=== PATIENT | female | born 1935 | race Caucasian/White ===

== ENCOUNTER 2024-07-23 17:05 | Inpatient (IN) | payer OTHER, MEDICAID ==
[~2024-07-23] VITALS: Ht 147.3 cm; Wt 108.4 kg
[2024-07-23 17:22] VITALS: BP_SYST 113; PULSE 90; RESP 18; TEMP 98.3; O2SAT 98
[2024-07-23 20:37] LABS: ANION GAP 6 (5-15); CALCIUM 9.5 mg/dL (8.4-11.0); CARBON DIOXIDE 26 mmol/L (23-29); CHLORIDE 101 mmol/L (98-107); CREATININE 1.63 mg/dL (0.55-1.30); GLUCOSE 92 mg/dL (74-106); POTASSIUM 4.5 mmol/L (3.5-5.1); RED CELL DISTRIBUTION WIDTH 13.9 % (9.0-15.0); SODIUM SERUM 133 mmol/L (136-145); UREA NITROGEN, BLOOD 40 mg/dL (8-21)
[2024-07-23 20:46] LABS: HEMATOCRIT 42.1 % (36-48); HEMOGLOBIN 14.5 g/dL (12.0-16.0); MEAN CORPUSCULAR HEMOGLOBIN 33 pg (27-31); MEAN CORPUSCULAR HGB CONC 34 % (32-36); MEAN CORPUSCULAR VOLUME 96 fL (79.0-98.0); PLATELET COUNT (AUTO) 238 K/uL (130-430); RED BLOOD CELL COUNT(AUTO) 4.41 MIL/uL (4.2-6.2)
[2024-07-23 21:28] LABS: BAND % (MANUAL) 63 % (0-6); LYMPHOCYTES % (MANUAL) 3 % (20-46)
[2024-07-23 21:29] LABS: BASOPHILS % (MANUAL) 0 % (0-2); EOSINOPHILS % (MANUAL) 0 % (0-7); METAMYELOCYTES % 13 % (0-0); MONOCYTES % (MANUAL) 3 % (0-11); MYELOCYTES % 3 % (0-0); OVALOCYTES FEW; PLATELET ESTIMATE ADEQUATE (ADEQUATE); TEAR DROP CELLS FEW
[2024-07-23] MEDS: NACL 0.9% 1,000 ML IV ONE (21:41)
[2024-07-23] MEDS: KETOROLAC TROMETHAMINE 30 MG VIAL IVP ONE (21:44)
[2024-07-23] MEDS: MORPHINE 2 MG/ML INJ. SYRINGE IVP ONE (23:15)
[2024-07-24] VITALS (7 sets, daily range): BP systolic 84–130; PULSE 76–90; RESP 16–22; TEMP 96.6–97.7; O2SAT 96–100
[2024-07-24] MEDS: PIPERACILLIN/TAZO 3.375 GM in NS 50 ML IV ONE (00:45)
[2024-07-24 01:01] LABS: BILIRUBIN,URINE 1+ (NEGATIVE); BLOOD, URINE NEGATIVE (NEGATIVE); GLUCOSE,URINE NEGATIVE (NEGATIVE); KETONES,URINE TRACE (NEGATIVE); LEUKOCYTE ESTERASE ,URINE NEGATIVE (NEGATIVE); NITRITE, URINE NEGATIVE (NEGATIVE); PROTEIN URINE 1+ (NEGATIVE); UROBILINOGEN,URINE 0.2 (0.2-1.0)
[2024-07-24] MEDS ORDERED: PIPERACILLIN/TAZOBACTAM 3.375 GM/VIAL (ZOSYN) IV ONE (01:09)
[2024-07-24 01:10] LABS: CLARITY/URINE SLIGHTLY CLOUDY (CLEAR); COLOR,URINE AMBER (YELLOW)
[2024-07-24 01:11] LABS: BACTERIA,URINE FEW /HPF (None Seen); CALCIUM OXALATE CRYSTALS,UR 0-10 /HPF (None Seen); RBC,URINE 0-3 /HPF (0-3); WBC,URINE 0-3 /HPF (0-3)
[2024-07-24 01:13] LABS: HYALINE CASTS, URINE 0-10 /LPF (None Seen)
[2024-07-24] MEDS ORDERED: LEVO125T PO (01:42)
[2024-07-24] MEDS ORDERED: ALBMDI INH (01:42)
[2024-07-24] MEDS ORDERED: TEMAZEPAM 15 MG CAPSULE PO PRN (02:00)
[2024-07-24] MEDS ORDERED: TEMAZEPAM 7.5 MG CAPSULE PO PRN (02:00)
[2024-07-24] MEDS: NACL 0.9% 1,000 ML IV SCH (02:36)
[2024-07-24] MEDS ORDERED: VANCOMYCIN HCL 1000 MG/VIAL IV ONE (02:42)
[2024-07-24] MEDS: VANCOMYCIN HCL 1,000 MG in NS 250 ML IV ONE (02:43)
[2024-07-24] MEDS: PIPERACILLIN/TAZO 3.375 GM in NS 50 ML IV SCH (09:45)
[2024-07-24] MEDS ORDERED: MIDODRINE HCL 5 MG TABLET (PROAMATINE) PO PRN (11:00)
[2024-07-24] MEDS ORDERED: DOXYCYCLINE HYCLATE 100 MG TABLET PO ONE (12:30)
[2024-07-24] MEDS ORDERED: DOXYCYCLINE HYCLATE 100 MG TABLET PO SCH (12:30)
[2024-07-24] MEDS: MIDODRINE HCL 5 MG TABLET (PROAMATINE) PO PRN (12:41)
[2024-07-24] MEDS: traMADol HCL HCL 50 MG TABLET (ULTRAM) PO SCH (13:27)
[2024-07-24] MEDS: LINEZOLID 300 ML IV ONE (13:53)
[2024-07-24] MEDS: LINEZOLID 300 ML IV SCH (20:20)
[2024-07-25] VITALS (7 sets, daily range): BP systolic 89–131; PULSE 78–85; RESP 16–20; TEMP 96.1–98; O2SAT 97–100
[2024-07-25] MEDS: HYDROcodone/ACETAMIN 5-325 MG TAB (NORCO/ VICODIN) PO PRN (05:25)
[2024-07-25 06:45] LABS: ANION GAP 10 (5-15); CALCIUM 8.6 mg/dL (8.4-11.0); CARBON DIOXIDE 21 mmol/L (23-29); CHLORIDE 101 mmol/L (98-107); CREATININE 1.68 mg/dL (0.55-1.30); GLUCOSE 69 mg/dL (74-106); POTASSIUM 5.2 mmol/L (3.5-5.1); SODIUM SERUM 132 mmol/L (136-145); UREA NITROGEN, BLOOD 50 mg/dL (8-21)
[2024-07-25 07:15] LABS: EOSINOPHILS # (AUTO) 0.1 K/uL (0.0-0.4); EOSINOPHILS % (AUTO) 0.7 % (0.0-4.0); HEMATOCRIT 36.5 % (36-48); HEMOGLOBIN 11.8 g/dL (12.0-16.0); LYMPHOCYTES # (AUTO) 0.3 K/uL (1.0-5.5); LYMPHOCYTES % (AUTO) 2.2 % (20.5-51.5); MEAN CORPUSCULAR HEMOGLOBIN 31 pg (27-31); MEAN CORPUSCULAR HGB CONC 32 % (32-36); MEAN CORPUSCULAR VOLUME 97 fL (79.0-98.0); MONOCYTES # (AUTO) 0.3 K/uL (0.0-1.0); MONOCYTES % (AUTO) 1.9 % (1.7-9.3); NEUTROPHILS # (AUTO) 14.8 K/uL (1.8-7.7); NEUTROPHILS % (AUTO) 95.2 % (40.0-70.0); PLATELET COUNT (AUTO) 181 K/uL (130-430); RED BLOOD CELL COUNT(AUTO) 3.77 MIL/uL (4.2-6.2); RED CELL DISTRIBUTION WIDTH 14.1 % (9.0-15.0); WHITE BLOOD COUNT (AUTO) 15.5 K/uL (4.8-10.8)
[2024-07-25] MEDS: MENTHOL/ZINC OXIDE 113 GM OINT. TP SCH (09:59)
[2024-07-26 00:06] VITALS: BP_SYST 102; PULSE 79; RESP 20; TEMP 97.1
[2024-07-26 02:34] VITALS: BP_SYST 102; PULSE 63; RESP 18; TEMP 100; O2SAT 94
[2024-07-26 06:24] LABS: EOSINOPHILS # (AUTO) 0.2 K/uL (0.0-0.4); EOSINOPHILS % (AUTO) 1.4 % (0.0-4.0); HEMATOCRIT 34.3 % (36-48); HEMOGLOBIN 11.3 g/dL (12.0-16.0); LYMPHOCYTES # (AUTO) 0.3 K/uL (1.0-5.5); MEAN CORPUSCULAR HEMOGLOBIN 32 pg (27-31); MEAN CORPUSCULAR HGB CONC 33 % (32-36); MEAN CORPUSCULAR VOLUME 96 fL (79.0-98.0); MONOCYTES # (AUTO) 0.2 K/uL (0.0-1.0); MONOCYTES % (AUTO) 1.1 % (1.7-9.3); NEUTROPHILS # (AUTO) 16.3 K/uL (1.8-7.7); NEUTROPHILS % (AUTO) 95.5 % (40.0-70.0); PLATELET COUNT (AUTO) 172 K/uL (130-430); RED BLOOD CELL COUNT(AUTO) 3.57 MIL/uL (4.2-6.2); WHITE BLOOD COUNT (AUTO) 17.1 K/uL (4.8-10.8)
[2024-07-26 07:03] LABS: ANION GAP 10 (5-15); CALCIUM 8.4 mg/dL (8.4-11.0); CARBON DIOXIDE 22 mmol/L (23-29); CHLORIDE 97 mmol/L (98-107); CREATININE 1.46 mg/dL (0.55-1.30); SODIUM SERUM 129 mmol/L (136-145); UREA NITROGEN, BLOOD 46 mg/dL (8-21)
[2024-07-26 07:10] LABS: GLUCOSE 50 mg/dL (74-106)
[2024-07-26 08:00] VITALS: BP_SYST 88; PULSE 83; RESP 16; TEMP 98.7
[2024-07-26] MEDS: FLUCONAZOLE 200 mg/ NS 100 ML IV SCH (11:23)
[2024-07-26 12:36] VITALS: BP_SYST 97; PULSE 82; RESP 19; TEMP 97.2; O2SAT 94
[2024-07-26 13:31] LABS: BASOPHILS % (AUTO) 0.2 % (0.0-2.0); EOSINOPHILS # (AUTO) 0.2 K/uL (0.0-0.4); EOSINOPHILS % (AUTO) 1.1 % (0.0-4.0); HEMATOCRIT 35.8 % (36-48); HEMOGLOBIN 11.8 g/dL (12.0-16.0); LYMPHOCYTES # (AUTO) 0.3 K/uL (1.0-5.5); MEAN CORPUSCULAR HEMOGLOBIN 32 pg (27-31); MEAN CORPUSCULAR HGB CONC 33 % (32-36); MEAN CORPUSCULAR VOLUME 96 fL (79.0-98.0); MONOCYTES # (AUTO) 0.1 K/uL (0.0-1.0); MONOCYTES % (AUTO) 0.5 % (1.7-9.3); NEUTROPHILS # (AUTO) 15.3 K/uL (1.8-7.7); NEUTROPHILS % (AUTO) 96.2 % (40.0-70.0); PLATELET COUNT (AUTO) 159 K/uL (130-430); RED BLOOD CELL COUNT(AUTO) 3.72 MIL/uL (4.2-6.2); RED CELL DISTRIBUTION WIDTH 14.2 % (9.0-15.0); WHITE BLOOD COUNT (AUTO) 15.9 K/uL (4.8-10.8)
[2024-07-26 16:15] VITALS: BP_SYST 88; PULSE 82; RESP 21; TEMP 97.3; O2SAT 98
[2024-07-26 20:00] VITALS: BP_SYST 101; PULSE 80; RESP 19; TEMP 97.7; O2SAT 98
[2024-07-26 23:11] LABS: BILIRUBIN,URINE NEGATIVE (NEGATIVE); COLOR,URINE YELLOW (YELLOW); GLUCOSE,URINE NEGATIVE (NEGATIVE); KETONES,URINE NEGATIVE (NEGATIVE); LEUKOCYTE ESTERASE ,URINE NEGATIVE (NEGATIVE); NITRITE, URINE NEGATIVE (NEGATIVE); PROTEIN URINE TRACE (NEGATIVE); UROBILINOGEN,URINE 0.2 (0.2-1.0)
[2024-07-26 23:42] LABS: BLOOD, URINE 1+ (NEGATIVE); CLARITY/URINE SLIGHTLY CLOUDY (CLEAR)
[2024-07-26 23:59] LABS: BACTERIA,URINE None Seen /HPF (None Seen); WBC,URINE 0-3 /HPF (0-3)
[2024-07-27] VITALS (7 sets, daily range): BP systolic 100–116; PULSE 85–88; RESP 18–22; TEMP 97.4–98; O2SAT 96–98
[2024-07-27] LABS: URINE AMORPHOUS URATE 1+ /HPF (None Seen)
[2024-07-27] MEDS: DOXYCYCLINE HYCLATE 100 MG TABLET PO SCH (09:31)
[2024-07-27] MEDS: IPRATROPIUM/ALBUTEROL SULFATE 3 ML AMPUL.NEB (DUONEB) INH ONE (10:10)
[2024-07-27] MEDS: IPRATROPIUM/ALBUTEROL SULFATE 3 ML AMPUL.NEB (DUONEB) ONE (10:15)
[2024-07-27 10:40] LABS: URINE SODIUM, RANDOM 4 mmol/L (40-220)
[2024-07-27 15:53] LABS: HEMATOCRIT 33.4 % (36-48); HEMOGLOBIN 11.2 g/dL (12.0-16.0); MEAN CORPUSCULAR HEMOGLOBIN 33 pg (27-31); MEAN CORPUSCULAR HGB CONC 33 % (32-36); MEAN CORPUSCULAR VOLUME 98 fL (79.0-98.0); PLATELET COUNT (AUTO) 149 K/uL (130-430); RED CELL DISTRIBUTION WIDTH 14.9 % (9.0-15.0); WHITE BLOOD COUNT (AUTO) 16.9 K/uL (4.8-10.8)
[2024-07-27 16:20] LABS: ALANINE AMINOTRANSFERASE 30 U/L (12-78); ALBUMIN 1.2 g/dL (3.4-4.8); ANION GAP 10 (5-15); ASPARTATE AMINOTRANSFERASE 52 U/L (10-37); CALCIUM 7.8 mg/dL (8.4-11.0); CARBON DIOXIDE 19 mmol/L (23-29); CHLORIDE 98 mmol/L (98-107); CREATININE 1.37 mg/dL (0.55-1.30); GLUCOSE 83 mg/dL (74-106); POTASSIUM 5.2 mmol/L (3.5-5.1); SODIUM SERUM 127 mmol/L (136-145); TOTAL BILIRUBIN 0.6 mg/dL (0.0-1.0); UREA NITROGEN, BLOOD 45 mg/dL (8-21)
[2024-07-27 16:23] LABS: BAND % (MANUAL) 9 % (0-6); BASOPHILS % (MANUAL) 0 % (0-2); EOSINOPHILS % (MANUAL) 0 % (0-7); LYMPHOCYTES % (MANUAL) 2 % (20-46); METAMYELOCYTES % 1 % (0-0); MONOCYTES % (MANUAL) 2 % (0-11); MYELOCYTES % 1 % (0-0)
[2024-07-27 16:24] LABS: PLATELET ESTIMATE ADEQUATE (ADEQUATE)
[2024-07-28] VITALS (8 sets, daily range): BP systolic 93–110; PULSE 74–115; RESP 16–18; TEMP 96.1–98.5; O2SAT 93–99
[2024-07-28 07:36] LABS: BASOPHILS % (AUTO) 0.1 % (0.0-2.0); EOSINOPHILS # (AUTO) 0.1 K/uL (0.0-0.4); EOSINOPHILS % (AUTO) 0.8 % (0.0-4.0); HEMATOCRIT 34.2 % (36-48); LYMPHOCYTES # (AUTO) 0.4 K/uL (1.0-5.5); LYMPHOCYTES % (AUTO) 1.9 % (20.5-51.5); MEAN CORPUSCULAR HEMOGLOBIN 31 pg (27-31); MEAN CORPUSCULAR HGB CONC 32 % (32-36); MEAN CORPUSCULAR VOLUME 97 fL (79.0-98.0); MONOCYTES # (AUTO) 0.5 K/uL (0.0-1.0); MONOCYTES % (AUTO) 2.7 % (1.7-9.3); NEUTROPHILS % (AUTO) 94.5 % (40.0-70.0); PLATELET COUNT (AUTO) 163 K/uL (130-430); RED BLOOD CELL COUNT(AUTO) 3.52 MIL/uL (4.2-6.2); RED CELL DISTRIBUTION WIDTH 14.6 % (9.0-15.0); WHITE BLOOD COUNT (AUTO) 19.1 K/uL (4.8-10.8)
[2024-07-28] MEDS: IPRATROPIUM/ALBUTEROL SULFATE 3 ML AMPUL.NEB (DUONEB) INH PRN (07:39)
[2024-07-28 07:51] LABS: ANION GAP 6 (5-15); CALCIUM 8.5 mg/dL (8.4-11.0); CARBON DIOXIDE 24 mmol/L (23-29); CHLORIDE 100 mmol/L (98-107); CREATININE 1.32 mg/dL (0.55-1.30); GLUCOSE 62 mg/dL (74-106); PHOSPHORUS 4.1 mg/dL (2.7-4.5); POTASSIUM 5.3 mmol/L (3.5-5.1); SODIUM SERUM 130 mmol/L (136-145); UREA NITROGEN, BLOOD 45 mg/dL (8-21)
[2024-07-28 08:19] LABS: ERYTHROCYTE SEDIMENTATION RATE 80 MM/HR (0-20)
[2024-07-28] MEDS: CIPROFLOXACIN LACT 200 MG/D5W 100 ML IV SCH (16:38)
[2024-07-28] MEDS: LINEZOLID 600 MG TABLET PO SCH (21:55)
[2024-07-29 01:24] VITALS: BP_SYST 103; PULSE 124; RESP 12; TEMP 97.6; O2SAT 97
[2024-07-29 06:13] LABS: BASOPHILS % (AUTO) 0.1 % (0.0-2.0); EOSINOPHILS # (AUTO) 0.2 K/uL (0.0-0.4); HEMATOCRIT 33.6 % (36-48); HEMOGLOBIN 10.8 g/dL (12.0-16.0); LYMPHOCYTES # (AUTO) 0.3 K/uL (1.0-5.5); LYMPHOCYTES % (AUTO) 1.6 % (20.5-51.5); MEAN CORPUSCULAR HEMOGLOBIN 31 pg (27-31); MEAN CORPUSCULAR HGB CONC 32 % (32-36); MEAN CORPUSCULAR VOLUME 97 fL (79.0-98.0); MONOCYTES # (AUTO) 0.6 K/uL (0.0-1.0); MONOCYTES % (AUTO) 3.4 % (1.7-9.3); NEUTROPHILS # (AUTO) 17.5 K/uL (1.8-7.7); NEUTROPHILS % (AUTO) 93.9 % (40.0-70.0); PLATELET COUNT (AUTO) 169 K/uL (130-430); RED BLOOD CELL COUNT(AUTO) 3.47 MIL/uL (4.2-6.2); RED CELL DISTRIBUTION WIDTH 14.6 % (9.0-15.0); WHITE BLOOD COUNT (AUTO) 18.7 K/uL (4.8-10.8)
[2024-07-29 06:23] LABS: ANION GAP 10 (5-15); CALCIUM 8.4 mg/dL (8.4-11.0); CARBON DIOXIDE 20 mmol/L (23-29); CHLORIDE 99 mmol/L (98-107); CREATININE 1.07 mg/dL (0.55-1.30); GLUCOSE 82 mg/dL (74-106); PHOSPHORUS 4.4 mg/dL (2.7-4.5); POTASSIUM 4.6 mmol/L (3.5-5.1); SODIUM SERUM 129 mmol/L (136-145); UREA NITROGEN, BLOOD 43 mg/dL (8-21)
[2024-07-29 06:27] LABS: ERYTHROCYTE SEDIMENTATION RATE 108 MM/HR (0-20)
[2024-07-29] MEDS: SODIUM ZIRCONIUM CYCLOSILICATE 10 GM POWD.PACK PO ONE (07:00)
[2024-07-29 08:00] VITALS: BP_SYST 98; PULSE 80; RESP 16; O2SAT 94
[2024-07-29 13:27] VITALS: BP_SYST 101; PULSE 85; RESP 15; TEMP 98; O2SAT 98
[2024-07-29] MEDS: NACL 0.9% 1,000 ML IV SCH (14:15)
[2024-07-29 17:22] VITALS: BP_SYST 100; PULSE 82; RESP 16; TEMP 97.8; O2SAT 96
[2024-07-29 19:00] VITALS: BP_SYST 150; PULSE 103; RESP 18; TEMP 98.9; O2SAT 98
[2024-07-29 20:00] VITALS: BP_SYST 150; PULSE 103; RESP 18; TEMP 98.9; O2SAT 98
[2024-07-30] VITALS (8 sets, daily range): BP systolic 113–123; PULSE 76–83; RESP 16–24; TEMP 96–97.4; O2SAT 96–100
[2024-07-30 08:41] LABS: ERYTHROCYTE SEDIMENTATION RATE 92 MM/HR (0-20)
[2024-07-30 08:45] LABS: BASOPHILS % (AUTO) 0.2 % (0.0-2.0); EOSINOPHILS # (AUTO) 0.1 K/uL (0.0-0.4); EOSINOPHILS % (AUTO) 0.7 % (0.0-4.0); HEMATOCRIT 35.9 % (36-48); HEMOGLOBIN 11.6 g/dL (12.0-16.0); LYMPHOCYTES # (AUTO) 0.3 K/uL (1.0-5.5); LYMPHOCYTES % (AUTO) 1.7 % (20.5-51.5); MEAN CORPUSCULAR HEMOGLOBIN 31 pg (27-31); MEAN CORPUSCULAR HGB CONC 33 % (32-36); MEAN CORPUSCULAR VOLUME 97 fL (79.0-98.0); MONOCYTES # (AUTO) 0.6 K/uL (0.0-1.0); MONOCYTES % (AUTO) 3.2 % (1.7-9.3); NEUTROPHILS # (AUTO) 18.7 K/uL (1.8-7.7); PLATELET COUNT (AUTO) 174 K/uL (130-430); RED BLOOD CELL COUNT(AUTO) 3.71 MIL/uL (4.2-6.2); RED CELL DISTRIBUTION WIDTH 14.6 % (9.0-15.0); WHITE BLOOD COUNT (AUTO) 19.9 K/uL (4.8-10.8)
[2024-07-30 08:54] LABS: NEUTROPHILS % (AUTO) 94.2 % (40.0-70.0)
[2024-07-30 09:00] LABS: ALANINE AMINOTRANSFERASE 40 U/L (12-78); ANION GAP 7 (5-15); ASPARTATE AMINOTRANSFERASE 79 U/L (10-37); CALCIUM 8.4 mg/dL (8.4-11.0); CARBON DIOXIDE 24 mmol/L (23-29); CHLORIDE 97 mmol/L (98-107); CREATININE 0.96 mg/dL (0.55-1.30); GLUCOSE 83 mg/dL (74-106); POTASSIUM 4.7 mmol/L (3.5-5.1); SODIUM SERUM 128 mmol/L (136-145); TOTAL BILIRUBIN 0.8 mg/dL (0.0-1.0); TOTAL PROTEIN, SERUM 4.9 g/dL (6.4-8.3); UREA NITROGEN, BLOOD 45 mg/dL (8-21)
[2024-07-30 11:25] LABS: INR 0.9 (0.8-1.2); PROTHROMBIN TIME 9.7 SECS (9.5-12.5)
[2024-07-30 16:52] LABS: ANION GAP 7 (5-15); CALCIUM 8.1 mg/dL (8.4-11.0); CARBON DIOXIDE 24 mmol/L (23-29); CHLORIDE 101 mmol/L (98-107); CREATININE 0.79 mg/dL (0.55-1.30); GLUCOSE 88 mg/dL (74-106); POTASSIUM 4.8 mmol/L (3.5-5.1); SODIUM SERUM 132 mmol/L (136-145); UREA NITROGEN, BLOOD 43 mg/dL (8-21)
[2024-07-30] MEDS: NYSTATIN 15 GM TOPICAL POWDER TP SCH (22:39)
[2024-07-31] VITALS (7 sets, daily range): BP systolic 118–142; PULSE 63–84; RESP 17–22; TEMP 98.4–99; O2SAT 95–100
[2024-07-31 18:42] LABS: BILIRUBIN,URINE NEGATIVE (NEGATIVE); CLARITY/URINE CLEAR (CLEAR); COLOR,URINE YELLOW (YELLOW); GLUCOSE,URINE NEGATIVE (NEGATIVE); KETONES,URINE NEGATIVE (NEGATIVE); LEUKOCYTE ESTERASE ,URINE NEGATIVE (NEGATIVE); NITRITE, URINE NEGATIVE (NEGATIVE); PROTEIN URINE NEGATIVE (NEGATIVE); UROBILINOGEN,URINE 0.2 (0.2-1.0)
[2024-07-31 19:05] LABS: BLOOD, URINE TRACE (NEGATIVE)
[2024-07-31 19:06] LABS: BACTERIA,URINE FEW /HPF (None Seen); COARSE GRANULAR CASTS,URINE 0-10 /LPF (None Seen); MUCUS,URINE None Seen /LPF (None Seen); WBC,URINE 0-3 /HPF (0-3)
[2024-08-01 00:20] VITALS: BP_SYST 138; PULSE 79; RESP 20; TEMP 98.4; O2SAT 100
[2024-08-01 06:39] LABS: HEMATOCRIT 34.7 % (36-48); HEMOGLOBIN 11.4 g/dL (12.0-16.0); MEAN CORPUSCULAR HEMOGLOBIN 32 pg (27-31); MEAN CORPUSCULAR HGB CONC 33 % (32-36); MEAN CORPUSCULAR VOLUME 96 fL (79.0-98.0); PLATELET COUNT (AUTO) 146 K/uL (130-430); RED CELL DISTRIBUTION WIDTH 14.8 % (9.0-15.0); WHITE BLOOD COUNT (AUTO) 20.6 K/uL (4.8-10.8)
[2024-08-01 07:04] LABS: ALANINE AMINOTRANSFERASE 37 U/L (12-78); ANION GAP 7 (5-15); ASPARTATE AMINOTRANSFERASE 60 U/L (10-37); CALCIUM 8.4 mg/dL (8.4-11.0); CARBON DIOXIDE 24 mmol/L (23-29); CHLORIDE 101 mmol/L (98-107); CREATININE 0.71 mg/dL (0.55-1.30); GLUCOSE 97 mg/dL (74-106); POTASSIUM 4.9 mmol/L (3.5-5.1); SODIUM SERUM 132 mmol/L (136-145); TOTAL BILIRUBIN 0.5 mg/dL (0.0-1.0); TOTAL PROTEIN, SERUM 4.6 g/dL (6.4-8.3); UREA NITROGEN, BLOOD 41 mg/dL (8-21)
[2024-08-01 07:58] LABS: BAND % (MANUAL) 16 % (0-6); BASOPHILS % (MANUAL) 0 % (0-2); EOSINOPHILS % (MANUAL) 1 % (0-7); LYMPHOCYTES % (MANUAL) 4 % (20-46); MONOCYTES % (MANUAL) 2 % (0-11)
[2024-08-01 08:02] VITALS: BP_SYST 117; PULSE 78; RESP 20; TEMP 98; O2SAT 99
[2024-08-01 08:30] VITALS: O2SAT 99
[2024-08-01 11:32] VITALS: BP_SYST 127; PULSE 76; RESP 20; TEMP 98; O2SAT 97
[2024-08-01] MEDS: ALBUMIN HUMAN 25% 50 ML IV SCH (11:35)
[2024-08-01] MEDS: BUMEX 1 MG/4 ML VIAL IVP ONE (11:36)
[2024-08-01 16:15] VITALS: BP_SYST 129; PULSE 76; RESP 20; TEMP 98; O2SAT 96
[2024-08-01 20:04] VITALS: BP_SYST 137; PULSE 79; RESP 21; O2SAT 99
[2024-08-01] MEDS: BUMEX 1 MG/4 ML VIAL IVP SCH (20:52)
[2024-08-02 00:21] VITALS: BP_SYST 148; PULSE 72; RESP 18; TEMP 97.9
[2024-08-02] MEDS: PIPERACILLIN/TAZO 3.375 GM in D5W 50 ML IV SCH ×2 (02:48→14:16)
[2024-08-02] MEDS: PIPERACILLIN/TAZOBACTAM 3.375 GM/VIAL (ZOSYN) IV ONE (03:29)
[2024-08-02 06:03] LABS: BASOPHILS # (AUTO) 0.1 K/uL (0.0-0.2); BASOPHILS % (AUTO) 0.4 % (0.0-2.0); EOSINOPHILS # (AUTO) 0.4 K/uL (0.0-0.4); EOSINOPHILS % (AUTO) 2.4 % (0.0-4.0); HEMATOCRIT 32.5 % (36-48); HEMOGLOBIN 10.7 g/dL (12.0-16.0); LYMPHOCYTES # (AUTO) 0.7 K/uL (1.0-5.5); LYMPHOCYTES % (AUTO) 3.8 % (20.5-51.5); MEAN CORPUSCULAR HEMOGLOBIN 32 pg (27-31); MEAN CORPUSCULAR HGB CONC 33 % (32-36); MEAN CORPUSCULAR VOLUME 96 fL (79.0-98.0); MONOCYTES # (AUTO) 0.7 K/uL (0.0-1.0); NEUTROPHILS # (AUTO) 15.9 K/uL (1.8-7.7); NEUTROPHILS % (AUTO) 89.4 % (40.0-70.0); PLATELET COUNT (AUTO) 136 K/uL (130-430); RED BLOOD CELL COUNT(AUTO) 3.38 MIL/uL (4.2-6.2); RED CELL DISTRIBUTION WIDTH 14.7 % (9.0-15.0); WHITE BLOOD COUNT (AUTO) 17.8 K/uL (4.8-10.8)
[2024-08-02 06:09] LABS: ANION GAP 5 (5-15); CALCIUM 8.5 mg/dL (8.4-11.0); CARBON DIOXIDE 23 mmol/L (23-29); CHLORIDE 104 mmol/L (98-107); CREATININE 0.64 mg/dL (0.55-1.30); GLUCOSE 90 mg/dL (74-106); POTASSIUM 3.8 mmol/L (3.5-5.1); SODIUM SERUM 132 mmol/L (136-145); UREA NITROGEN, BLOOD 44 mg/dL (8-21)
[2024-08-02 08:08] VITALS: BP_SYST 119; PULSE 85; RESP 20; TEMP 98.1; O2SAT 98
[2024-08-02 09:00] VITALS: O2SAT 98
[2024-08-02] MEDS ORDERED: PIPERACILLIN/TAZO 3.375 GM in D5W 50 ML IV SCH (09:15)
[2024-08-02] MEDS: LINEZOLID 300 ML IV SCH (10:02)
[2024-08-02] MEDS: BUMEX 1 MG/4 ML VIAL ONE (10:04)
[2024-08-02 16:24] VITALS: BP_SYST 122; PULSE 72; O2SAT 99
[2024-08-02 17:51] VITALS: BP_SYST 130; PULSE 72; RESP 17; TEMP 97.8; O2SAT 100
[2024-08-02 20:00] VITALS: O2SAT 98
[2024-08-03] VITALS (7 sets, daily range): BP systolic 126–141; PULSE 63–81; RESP 17–18; TEMP 97.4–98.2; O2SAT 97–100
[2024-08-03 08:25] LABS: BASOPHILS % (AUTO) 0.2 % (0.0-2.0); EOSINOPHILS # (AUTO) 0.2 K/uL (0.0-0.4); HEMATOCRIT 34.7 % (36-48); HEMOGLOBIN 11.3 g/dL (12.0-16.0); LYMPHOCYTES # (AUTO) 0.5 K/uL (1.0-5.5); LYMPHOCYTES % (AUTO) 2.6 % (20.5-51.5); MEAN CORPUSCULAR HEMOGLOBIN 31 pg (27-31); MEAN CORPUSCULAR HGB CONC 33 % (32-36); MEAN CORPUSCULAR VOLUME 97 fL (79.0-98.0); MONOCYTES # (AUTO) 0.6 K/uL (0.0-1.0); MONOCYTES % (AUTO) 3.3 % (1.7-9.3); NEUTROPHILS # (AUTO) 17.6 K/uL (1.8-7.7); PLATELET COUNT (AUTO) 112 K/uL (130-430); RED CELL DISTRIBUTION WIDTH 14.4 % (9.0-15.0); WHITE BLOOD COUNT (AUTO) 18.9 K/uL (4.8-10.8)
[2024-08-03 08:39] LABS: ANION GAP 7 (5-15); CALCIUM 8.3 mg/dL (8.4-11.0); CARBON DIOXIDE 27 mmol/L (23-29); CHLORIDE 101 mmol/L (98-107); CREATININE 0.64 mg/dL (0.55-1.30); GLUCOSE 96 mg/dL (74-106); POTASSIUM 4.2 mmol/L (3.5-5.1); SODIUM SERUM 135 mmol/L (136-145); UREA NITROGEN, BLOOD 32 mg/dL (8-21)
[2024-08-03 08:48] LABS: NEUTROPHILS % (AUTO) 92.9 % (40.0-70.0)
[2024-08-03] MEDS: BUMEX 1 MG/4 ML VIAL ONE (10:07)
[2024-08-03] MEDS ORDERED: HYDROcodone/ACETAMIN 5-325 MG TAB (NORCO/ VICODIN) PO PRN (23:15)
[2024-08-03] MEDS ORDERED: NALOXONE HCL 0.4 MG/ML AMP (NARCAN) IVP PRN (23:15)
[2024-08-03] MEDS: HYDROcodone/ACETAMIN 10-325 MG TAB PO PRN (23:45)
[2024-08-04] VITALS (7 sets, daily range): BP systolic 126–140; PULSE 67–81; RESP 16–20; TEMP 96.7–98; O2SAT 98–100
[2024-08-04 12:44] LABS: BASOPHILS # (AUTO) 0.1 K/uL (0.0-0.2); BASOPHILS % (AUTO) 0.3 % (0.0-2.0); EOSINOPHILS # (AUTO) 0.2 K/uL (0.0-0.4); EOSINOPHILS % (AUTO) 1.5 % (0.0-4.0); HEMATOCRIT 32.5 % (36-48); HEMOGLOBIN 10.7 g/dL (12.0-16.0); LYMPHOCYTES # (AUTO) 0.6 K/uL (1.0-5.5); LYMPHOCYTES % (AUTO) 3.7 % (20.5-51.5); MEAN CORPUSCULAR HEMOGLOBIN 31 pg (27-31); MEAN CORPUSCULAR HGB CONC 33 % (32-36); MEAN CORPUSCULAR VOLUME 95 fL (79.0-98.0); MONOCYTES # (AUTO) 0.6 K/uL (0.0-1.0); MONOCYTES % (AUTO) 4.2 % (1.7-9.3); PLATELET COUNT (AUTO) 105 K/uL (130-430); RED BLOOD CELL COUNT(AUTO) 3.42 MIL/uL (4.2-6.2); RED CELL DISTRIBUTION WIDTH 14.3 % (9.0-15.0); WHITE BLOOD COUNT (AUTO) 15.5 K/uL (4.8-10.8)
[2024-08-04 12:48] LABS: NEUTROPHILS % (AUTO) 90.3 % (40.0-70.0)
[2024-08-04 13:06] LABS: ANION GAP 7 (5-15); CARBON DIOXIDE 26 mmol/L (23-29); CHLORIDE 101 mmol/L (98-107); CREATININE 0.69 mg/dL (0.55-1.30); GLUCOSE 118 mg/dL (74-106); POTASSIUM 3.7 mmol/L (3.5-5.1); SODIUM SERUM 134 mmol/L (136-145); UREA NITROGEN, BLOOD 24 mg/dL (8-21)
[2024-08-04] MEDS: BUMEX 1 MG/4 ML VIAL IVP SCH (20:36)
[2024-08-05] VITALS (8 sets, daily range): BP systolic 119–137; PULSE 64–76; RESP 17–18; TEMP 97.6–98.6; O2SAT 97–100
[2024-08-05 08:39] LABS: ANION GAP 6 (5-15); CALCIUM 8.4 mg/dL (8.4-11.0); CARBON DIOXIDE 26 mmol/L (23-29); CHLORIDE 99 mmol/L (98-107); CREATININE 0.65 mg/dL (0.55-1.30); GLUCOSE 98 mg/dL (74-106); POTASSIUM 3.8 mmol/L (3.5-5.1); SODIUM SERUM 131 mmol/L (136-145); UREA NITROGEN, BLOOD 24 mg/dL (8-21)
[2024-08-05 09:23] LABS: BASOPHILS % (AUTO) 0.3 % (0.0-2.0); EOSINOPHILS # (AUTO) 0.2 K/uL (0.0-0.4); EOSINOPHILS % (AUTO) 1.3 % (0.0-4.0); HEMOGLOBIN 11.1 g/dL (12.0-16.0); LYMPHOCYTES # (AUTO) 0.5 K/uL (1.0-5.5); LYMPHOCYTES % (AUTO) 3.5 % (20.5-51.5); MEAN CORPUSCULAR HEMOGLOBIN 31 pg (27-31); MEAN CORPUSCULAR HGB CONC 33 % (32-36); MONOCYTES # (AUTO) 0.7 K/uL (0.0-1.0); MONOCYTES % (AUTO) 4.6 % (1.7-9.3); NEUTROPHILS # (AUTO) 13.5 K/uL (1.8-7.7); NEUTROPHILS % (AUTO) 90.3 % (40.0-70.0); PLATELET COUNT (AUTO) 130 K/uL (130-430); RED BLOOD CELL COUNT(AUTO) 3.52 MIL/uL (4.2-6.2); RED CELL DISTRIBUTION WIDTH 14.4 % (9.0-15.0); WHITE BLOOD COUNT (AUTO) 14.9 K/uL (4.8-10.8)
[2024-08-05 09:46] LABS: MEAN CORPUSCULAR VOLUME 97 fL (79.0-98.0)
[2024-08-05 09:49] LABS: ERYTHROCYTE SEDIMENTATION RATE 46 MM/HR (0-20)
[2024-08-06 02:04] VITALS: BP_SYST 116; PULSE 66; RESP 17; TEMP 96.5; O2SAT 99
[2024-08-06 08:00] VITALS: O2SAT 98
[2024-08-06 09:04] LABS: ERYTHROCYTE SEDIMENTATION RATE 39 MM/HR (0-20)
[2024-08-06 09:11] LABS: BASOPHILS # (AUTO) 0.1 K/uL (0.0-0.2); BASOPHILS % (AUTO) 0.5 % (0.0-2.0); EOSINOPHILS # (AUTO) 0.2 K/uL (0.0-0.4); EOSINOPHILS % (AUTO) 1.6 % (0.0-4.0); HEMATOCRIT 32.6 % (36-48); HEMOGLOBIN 10.8 g/dL (12.0-16.0); LYMPHOCYTES # (AUTO) 0.6 K/uL (1.0-5.5); LYMPHOCYTES % (AUTO) 5.5 % (20.5-51.5); MEAN CORPUSCULAR HEMOGLOBIN 32 pg (27-31); MEAN CORPUSCULAR HGB CONC 33 % (32-36); MEAN CORPUSCULAR VOLUME 95 fL (79.0-98.0); MONOCYTES # (AUTO) 0.5 K/uL (0.0-1.0); MONOCYTES % (AUTO) 4.3 % (1.7-9.3); NEUTROPHILS # (AUTO) 9.9 K/uL (1.8-7.7); NEUTROPHILS % (AUTO) 88.1 % (40.0-70.0); PLATELET COUNT (AUTO) 144 K/uL (130-430); RED BLOOD CELL COUNT(AUTO) 3.42 MIL/uL (4.2-6.2); RED CELL DISTRIBUTION WIDTH 13.8 % (9.0-15.0); WHITE BLOOD COUNT (AUTO) 11.2 K/uL (4.8-10.8)
[2024-08-06 10:03] LABS: ALANINE AMINOTRANSFERASE 35 U/L (12-78); ALBUMIN 1.4 g/dL (3.4-4.8); ANION GAP 6 (5-15); ASPARTATE AMINOTRANSFERASE 42 U/L (10-37); CALCIUM 8.1 mg/dL (8.4-11.0); CARBON DIOXIDE 27 mmol/L (23-29); CHLORIDE 99 mmol/L (98-107); CREATININE 0.71 mg/dL (0.55-1.30); GLUCOSE 126 mg/dL (74-106); POTASSIUM 3.5 mmol/L (3.5-5.1); SODIUM SERUM 132 mmol/L (136-145); TOTAL BILIRUBIN 0.5 mg/dL (0.0-1.0); TOTAL PROTEIN, SERUM 4.6 g/dL (6.4-8.3); UREA NITROGEN, BLOOD 25 mg/dL (8-21)
[2024-08-06 12:13] VITALS: BP_SYST 122; PULSE 71; RESP 22; TEMP 97.2; O2SAT 98
[2024-08-06 17:04] VITALS: BP_SYST 122; PULSE 71; RESP 19; TEMP 97.9; O2SAT 98
[2024-08-06 20:00] VITALS: BP_SYST 119; PULSE 70; RESP 20; TEMP 98.1; O2SAT 98
[2024-08-07] VITALS (7 sets, daily range): BP systolic 110–146; PULSE 62–78; RESP 15–18; TEMP 96.9–98.2; O2SAT 97–100
[2024-08-08 01:53] VITALS: BP_SYST 127; PULSE 70; RESP 18; TEMP 97.2; O2SAT 97
[2024-08-08 08:00] VITALS: BP_SYST 118; PULSE 74; RESP 18; TEMP 97.6; O2SAT 97
[2024-08-08 12:50] VITALS: BP_SYST 103; PULSE 65; RESP 18; TEMP 97.4; O2SAT 97
[2024-08-08] MEDS: BUMETANIDE 1 MG TABLET PO ONE (14:40)
[2024-08-08 15:58] VITALS: PULSE 65; O2SAT 97
[2024-08-08] MEDS: PIPERACILLIN/TAZO 3.375 GM in D5W 50 ML IV SCH (16:06)
[2024-08-08 16:53] VITALS: BP_SYST 107; BP_SYST 140; PULSE 68; RESP 18; TEMP 97.2; O2SAT 100; O2SAT 99
[2024-08-08 20:04] VITALS: BP_SYST 113; PULSE 84; RESP 20; TEMP 99.4; O2SAT 98
[2024-08-09] VITALS: BP_SYST 142; PULSE 74; RESP 18; TEMP 97.6; O2SAT 97
[2024-08-09 06:04] LABS: BASOPHILS % (AUTO) 0.6 % (0.0-2.0); EOSINOPHILS # (AUTO) 0.2 K/uL (0.0-0.4); EOSINOPHILS % (AUTO) 2.9 % (0.0-4.0); HEMATOCRIT 31.7 % (36-48); HEMOGLOBIN 10.7 g/dL (12.0-16.0); LYMPHOCYTES # (AUTO) 1.1 K/uL (1.0-5.5); LYMPHOCYTES % (AUTO) 13.5 % (20.5-51.5); MEAN CORPUSCULAR HEMOGLOBIN 32 pg (27-31); MEAN CORPUSCULAR HGB CONC 34 % (32-36); MEAN CORPUSCULAR VOLUME 95 fL (79.0-98.0); MONOCYTES # (AUTO) 0.6 K/uL (0.0-1.0); MONOCYTES % (AUTO) 7.8 % (1.7-9.3); NEUTROPHILS % (AUTO) 75.2 % (40.0-70.0); PLATELET COUNT (AUTO) 173 K/uL (130-430); RED BLOOD CELL COUNT(AUTO) 3.35 MIL/uL (4.2-6.2); RED CELL DISTRIBUTION WIDTH 13.9 % (9.0-15.0)
[2024-08-09 06:33] LABS: ALANINE AMINOTRANSFERASE 46 U/L (12-78); ALBUMIN 1.5 g/dL (3.4-4.8); ANION GAP 5 (5-15); ASPARTATE AMINOTRANSFERASE 56 U/L (10-37); CALCIUM 8.1 mg/dL (8.4-11.0); CARBON DIOXIDE 31 mmol/L (23-29); CHLORIDE 100 mmol/L (98-107); CREATININE 0.64 mg/dL (0.55-1.30); GLUCOSE 102 mg/dL (74-106); POTASSIUM 3.7 mmol/L (3.5-5.1); SODIUM SERUM 136 mmol/L (136-145); TOTAL BILIRUBIN 0.5 mg/dL (0.0-1.0); TOTAL PROTEIN, SERUM 4.7 g/dL (6.4-8.3); UREA NITROGEN, BLOOD 15 mg/dL (8-21)
[2024-08-09 07:00] VITALS: O2SAT 97
[2024-08-09 08:00] VITALS: BP_SYST 124; PULSE 73; RESP 18; TEMP 97.8; O2SAT 97
[2024-08-09 12:53] VITALS: BP_SYST 115; PULSE 77; RESP 20; TEMP 97.3; O2SAT 100
[2024-08-09] MEDS ORDERED: LINE600T12 PO (15:40)
[2024-08-09] MEDS ORDERED: AMOX-423 PO (15:41)
[2024-08-09] MEDS ORDERED: CIPR-260 PO (15:42)
[2024-08-09 16:55] VITALS: BP_SYST 127; PULSE 77; RESP 18; TEMP 97.6; O2SAT 99
[2024-08-09 17:28] VITALS: BP_SYST 109; PULSE 75; RESP 18; TEMP 97.8; O2SAT 97
== END 2024-08-09 15:32 | DRG 603 ==
LOC: SED 17:05 → SMU 07-24 01:46 → STU 07-29 03:00 → SMU 08-02 00:26
PROVIDERS: ADMIT Specialist; ATTEND Specialist
PROC: 02HV33Z Insertion of Infusion Device into Superior Vena Cava, Percutaneous Approach (ICD-10-PCS; principal; 2024-07-30)
PROC: B548ZZA Ultrasonography of Superior Vena Cava, Guidance (ICD-10-PCS; 2024-07-30)
DX: L03.116 Cellulitis of left lower limb (principal); E87.1 Hypo-osmolality and hyponatremia; I13.0 Hypertensive heart and chronic kidney disease with heart failure and stage 1 through stage 4 chronic kidney disease, or unspecified chronic kidney disease; J44.0 Chronic obstructive pulmonary disease with (acute) lower respiratory infection; Z68.43 Body mass index [BMI] 50.0-59.9, adult; N39.0 Urinary tract infection, site not specified; N17.9 Acute kidney failure, unspecified; L03.115 Cellulitis of right lower limb; D72.825 Bandemia; E86.0 Dehydration; I89.0 Lymphedema, not elsewhere classified; N18.2 Chronic kidney disease, stage 2 (mild); E66.01 Morbid (severe) obesity due to excess calories; E83.41 Hypermagnesemia; I50.9 Heart failure, unspecified; E87.5 Hyperkalemia; L85.3 Xerosis cutis; I48.0 Paroxysmal atrial fibrillation; D64.9 Anemia, unspecified; Z79.01 Long term (current) use of anticoagulants; E03.9 Hypothyroidism, unspecified; Z79.899 Other long term (current) drug therapy; Z88.8 Allergy status to other drugs, medicaments and biological substances; B96.5 Pseudomonas (aeruginosa) (mallei) (pseudomallei) as the cause of diseases classified elsewhere; R62.7 Adult failure to thrive
CPT/HCPCS: 36415; 71045; 76770; 80048; 80053; 81000; 81001; 81015; 82570; 83605; 83735; 83880; 84100; 84302; 84443; 84484; 85007; 85025; 85027; 85610; 85651; 85730; 87040; 87070; 87186; 93005; 94070; 94640; 94760; 97110-GP; 97530-GP; 99285; C1751; G0378; J0744; J1450; J1885; J2020; J2543; J3370; J3490; J7030; J7040; J7050; J7060; P9046